=== PATIENT | female | born 1985 | race Caucasian/White ===

== ENCOUNTER 2016-06-27 22:49 | Emergency (ER) | payer SELFPAY ==
[~2016-06-27] VITALS: Ht 160 cm; Wt 64.5 kg
[2016-06-27 22:58] VITALS: Ht 160 cm; Wt 64.5 kg
== END 2016-06-27 23:57 | disposition left against medical advice (07) ==
LOC: FTE 22:49
DX: Z53.21 Procedure and treatment not carried out due to patient leaving prior to being seen by health care provider (principal)